=== PATIENT | male | born 1935 | race Caucasian/White ===

== ENCOUNTER 2024-03-15 09:39 | Inpatient (IN) | payer MEDICARE, BC, OTHER ==
[2024-03-15] VITALS (27 sets, daily range): BP systolic 116–159; BP diastolic 51–86
[~2024-03-15] VITALS: Ht 188 cm; Wt 88.6 kg
[2024-03-15 10:29] LABS: EOS% 0.3 % (0-8); HEMATOCRIT 33.9 % (39.0-50.0); HEMOGLOBIN 12.2 g/dl (14.0-18.0); IMMATURE GRANULOCYTES 0.3 % (0.0-5.0); LYMPH% 11.2 % (15-41); MEAN CELL VOLUME 92.4 fL CALC (80.0-100.0); MEAN CORPUSCULAR HGB 33.2 pG CALC (26.0-32.0); MONO% 8.3 % (2-13); NEUT# 3.07 thou/uL (1.82-7.42); NEUT% 79.9 % (42-76); RED BLOOD COUNT 3.67 mill/uL (4.70-6.10); RED CELL DISTRI WIDTH 13.2 % (11.5-15.5)
[2024-03-15] MEDS ORDERED: cefTRIAXone SODIUM 2 GM in SODIUM CHLORIDE 0.9% 100 ML IV ONE (10:30)
[2024-03-15] MEDS ORDERED: AZITHROMYCIN 250 MG/TAB PO ONE (10:30)
[2024-03-15] MEDS ORDERED: IPRATROPIUM-Albuterol 0.5MG-2.5MG/3 ML NEB ONE ×2 (10:30)
[2024-03-15] MEDS ORDERED: methylPREDNISolone SODIUM SUCC 125 MG/2 ML SDV IV ONE (10:30)
[2024-03-15 10:48] LABS: ALBUMIN 3.7 g/dL (3.2-5.0); CREATININE 0.8 mg/dL (0.7-1.3); POTASSIUM 3.4 mmol/l (3.5-5.1); TOTAL PROTEIN 6.1 g/dL (6.3-8.2)
[2024-03-15 10:49] LABS: BILIRUBIN, TOTAL 0.8 mg/dL (0.2-1.3)
[2024-03-15] MEDS ORDERED: OSELTAMIVIR PHOSPHATE 75 MG/TAB CAP PO ONE (11:55)
[2024-03-15] MEDS ORDERED: ACETAMINOPHEN 325 MG/TAB PO PRN (12:05)
[2024-03-15] MEDS ORDERED: MAGNESIUM HYDROXIDE 30 ML UDC PO PRN (12:05)
[2024-03-15] MEDS ORDERED: SODIUM CHLORIDE 0.9% 1,000 ML IV PRN (12:05)
[2024-03-15] MEDS ORDERED: LOSARTAN/HCT1 TA2 PO (12:19)
[2024-03-15] MEDS ORDERED: OMEPRAZOLE DR40 MG PO (12:20)
[2024-03-15] MEDS ORDERED: ATORVASTATIN CA10 MG PO (12:21)
[2024-03-15] MEDS ORDERED: VERAPAMIL HCL120 M2 PO (12:21)
[2024-03-15] MEDS ORDERED: PROVENTIL0.083 % IN (12:22)
[2024-03-15] MEDS ORDERED: TRAZODONE100 MG PO (12:23)
[2024-03-15] MEDS ORDERED: TRELEGY ELLIPTA1 AE1 PO (12:26)
[2024-03-15] MEDS ORDERED: VITAMIN D-32000 UNI1 PO (12:27)
[2024-03-15] MEDS ORDERED: VITAMIN C + PO (12:27)
[2024-03-15] MEDS ORDERED: MULTI VIT PO (12:28)
[2024-03-15] MEDS ORDERED: DOXYCYCLINE HYCLATE 100 MG in SODIUM CHLORIDE 0.9% 100 ML IV SCH (13:00)
--- NOTE | 2024-03-15 14:03 | NUR ---
PATIENT TAKEN TO ICU VIA WHEELCHAIR AND OXYGEN.
--- NOTE | 2024-03-15 14:32 | NUR ---
PT ARRIVED TO ICU BY WHEELCHAIR WITH NURSE, OLIVIA. PT ADMITTED WITH PNA AND FLU. PT IS A/O. AMBULATORY, USES AGUIAR OCCASIONALLY AT HOME. LUNG SOUNDS DIMINISHED THROUGHOUT, COARSE UPPER, AND EXP WHEEZE IN RIGHT LOWER LOBE. PT IS ON 2LNC, DOES NOT WEAR HOME O2. PT DOES REPORT SOB WITH ACTIVITY, EVEN FROM STANDING FROM WHEELCHAIR TO GET TO THE BED. OCCASIONAL COUGH NOTED; NOT PRODUCING SPUTUM AT THIS TIME. HEART SOUNDS S1S2; PT IS NSR ON MONITOR. BS ACTIVE. PT REPORTS LAST BM YESTERDAY. PULSES STRONG UPPER, WEAK LOWER EXTREMETIES. SKIN W/D/I. AFEBRILE. PT DENIES ANY PAIN. GIVEN CALL LIGHT AND EXPLAINED FALL PRECAUTIONS. PT GIVEN MICROWAVEABLE DINNER. ALL NEEDS MET AT THIS TIME. VSS.
[2024-03-15] MEDS ORDERED: IPRATROPIUM-Albuterol 0.5MG-2.5MG/3 ML NEB SCH (15:00)
[2024-03-15] MEDS ORDERED: VERAPAMIL HCL240 MG PO (16:10)
--- NOTE | 2024-03-15 16:41 | NUR ---
VISITOR AT BEDSIDE. NO CHANGES TO PT STATUS.
--- NOTE | 2024-03-15 17:40 | NUR ---
PT PULLED OUT IV AND DISCONNECTED BIPAP MACHINE WHILE GETTING TO EDGE OF BED. NEW IV STARTED AND BIPAP RECONNECTED. PT REMINDED TO WAIT FOR ASSISTANCE. LINENS CHANGED AND PT REPOSITIONED IN BED. BED ALARM ON FOR SAFETY. CALL LIGHT IN REACH. VSS.
--- NOTE | 2024-03-15 19:15 | NUR ---
PERFORMED BEDSIDE REPORT AND PATIENT WAS PLEASANT AND HAD NO PAINS.
--- NOTE | 2024-03-15 20:00 | NUR ---
PERFORMED PATIENT'S ASSESSMENT AND EDUCATED THE PATIENT ABOUT URINAL USE AND CALLING FOR HELP. HEARD PATIENT WITH A PRODUCTIVE COUGH AND ASKED IF HE WANTED COUGH MEDICATION OR ANYTHING FOR PAIN. PATIENT REFUSED.
[2024-03-15] MEDS ORDERED: OSELTAMIVIR PHOSPHATE 75 MG/TAB CAP PO SCH (21:00)
[2024-03-15] MEDS ORDERED: methylPREDNISolone Sod Succ 40 MG/ML SDV IV SCH (21:00)
[2024-03-15] MEDS ORDERED: traZODone HCL 50 MG/TAB PO SCH (21:00)
[2024-03-15] MEDS ORDERED: ENOXAPARIN SODIUM 40 MG/0.4 ML SYR SC SCH (21:00)
[2024-03-15] MEDS ORDERED: ATORVASTATIN CALCIUM 10 MG/TAB PO SCH (21:00)
--- NOTE | 2024-03-16 | NUR ---
PATIENT WAS RESTING AFTER GIVEN ALL MEDICATION. PATIENT SEEMS COMFORTABLE.
[2024-03-16 03:00] VITALS: BP 121/60
[2024-03-16 05:24] LABS: ALBUMIN 3.2 g/dL (3.2-5.0); BILIRUBIN, TOTAL 0.5 mg/dL (0.2-1.3); CREATININE 0.7 mg/dL (0.7-1.3); HEMATOCRIT 31.7 % (39.0-50.0); HEMOGLOBIN 11.6 g/dl (14.0-18.0); IMMATURE GRANULOCYTES 0.4 % (0.0-5.0); LYMPH% 9.3 % (15-41); MAGNESIUM 1.8 mg/dL (1.6-2.3); MEAN CELL VOLUME 92.4 fL CALC (80.0-100.0); MEAN CORPUSCULAR HGB 33.8 pG CALC (26.0-32.0); MEAN CORPUSCULAR HGB CONC 36.6 g/dL CAL (32.0-36.0); MONO% 3.9 % (2-13); NEUT# 2.22 thou/uL (1.82-7.42); NEUT% 86.4 % (42-76); POTASSIUM 3.1 mmol/l (3.5-5.1); RED BLOOD COUNT 3.43 mill/uL (4.70-6.10); RED CELL DISTRI WIDTH 12.8 % (11.5-15.5); TOTAL PROTEIN 5.7 g/dL (6.3-8.2)
[2024-03-16 06:00] VITALS: BP 144/65
--- NOTE | 2024-03-16 06:00 | NUR ---
ROUNDED WITH PATIENT TO ASK IF THERE WAS ANY PAIN OR COUGH NEEDED. PT REFUSED.
[2024-03-16] MEDS ORDERED: POTASSIUM CHLORIDE 20 MEQ/TAB PO SCH (08:00)
--- NOTE | 2024-03-16 08:00 | NUR ---
REPORT RECEIVED FROM NIGHT NURSE. NO CHANGES TO PT OVERNIGHT. PT REMAINS ON 2LNC. LUNGS DIMINISHED, OCCASIONAL NON-PRODUCTIVE COUGH NOTED. HEART SOUNDS S1S2; PT IS NSR ON MONITOR. BS ACTIVE. PULSES STRONG ALL EXTREMETIES. SKIN W/D/I. AFEBRILE. CALL LIGHT IN REACH. PT GIVEN BREAKFAST TRAY. VSS.
[2024-03-16 09:00] VITALS: BP 139/64
[2024-03-16] MEDS ORDERED: LOSARTAN Potassium 50 MG/TAB PO SCH (09:00)
[2024-03-16] MEDS ORDERED: PANTOPRAZOLE SODIUM Sesquihydr 40 MG/TAB PO SCH ×2 (09:00)
[2024-03-16] MEDS ORDERED: VERAPAMIL HCL ER 120 MG/CAP PO SCH (09:00)
--- NOTE | 2024-03-16 11:03 | NUR ---
REPORT GIVEN TO TI ARTEAGA. PT MOVING TO MED-SURG UNIT VIA WHEELCHAIR.
--- NOTE | 2024-03-16 11:15 | NUR ---
PT ARRIVED TO THE UNIT VIA STAFF/WHEELCHAIR TRANSPORT. ASSISTED PT TO COMMODE VIA WHEELCHAIR AND 1X ASSIST FOR SAFETY.
[2024-03-16 11:24] VITALS: BP 177/82
--- NOTE | 2024-03-16 11:30 | NUR ---
ASSISTED PT TO THE BED VIA WHEELCHAIR, (PT USES CANE AT HOME) RESPIRATIONS ARE LABORED WITH ACTIVITY, LUNGS ARE DIM AT BILATERAL LOWER LOBES, CLEAR AT BILATERAL UPPER LOBES, BOWEL SOUNDS ARE ACTIVE, PEDAL PULSES ARE PALPABLE TO TOUCH, PT DENIES PAIN AT THIS TIME.
[2024-03-16 15:32] VITALS: BP 118/52
--- NOTE | 2024-03-16 16:18 | NUR ---
PT SITTING UP IN BED, RESPIRATIONS ARE EVEN AND UNLABORED, PT IN NO ACUTE DISTRESS AT THIS TIME.
[2024-03-16 18:43] VITALS: BP 125/56
--- NOTE | 2024-03-16 19:44 | NUR ---
RECEIVED REPORT FROM NURSE ARTEAGA, PATIENT RESTING IN BED, ALERT ORIENTED, O2 @ 1LPM VIA NC, ON TELEMETRY, WHITE PRODUCTIVE COUGH, VOIDED 350 CC OF YELLOW URINE, REMAINS ON ISOLATION, LUNG SOUNDS DIMINISHED BASES, CALL LIGHT IN REACHED.
--- NOTE | 2024-03-17 | NUR ---
PATIENT RSETING IN BED, REMAINS ON O2 @ 1LPM VIA NC,NOT IS DISTRESS, CALL LIGHT WITHIN REACHED.
[2024-03-17 00:34] VITALS: BP 148/68
[2024-03-17 04:08] VITALS: BP 140/59
--- NOTE | 2024-03-17 05:23 | NUR ---
PATIENT BROUGHT DOWN TO RADIOLAGY FOR REPEAT CXR, PATIENT NOW BACK IN ROOM REMAINS ON O2 @ 1LPM VIA NC, CALL LIGHT WITHIN REACHED.
[2024-03-17 06:03] LABS: BILIRUBIN, TOTAL 0.4 mg/dL (0.2-1.3); CREATININE 0.7 mg/dL (0.7-1.3); MAGNESIUM 1.9 mg/dL (1.6-2.3); TOTAL PROTEIN 5.3 g/dL (6.3-8.2)
[2024-03-17 06:07] LABS: POTASSIUM 3.8 mmol/l (3.5-5.1)
[2024-03-17 06:11] LABS: BASO% 0.1 % (0-3); HEMATOCRIT 30.7 % (39.0-50.0); IMMATURE GRANULOCYTES 0.1 % (0.0-5.0); LYMPH% 4.4 % (15-41); MEAN CORPUSCULAR HGB 34.1 pG CALC (26.0-32.0); MEAN CORPUSCULAR HGB CONC 35.8 g/dL CAL (32.0-36.0); NEUT# 7.11 thou/uL (1.82-7.42); NEUT% 92.4 % (42-76); RED BLOOD COUNT 3.23 mill/uL (4.70-6.10); RED CELL DISTRI WIDTH 13.2 % (11.5-15.5)
--- NOTE | 2024-03-17 07:35 | NUR ---
SHIFT CHANGE REPORT, PT AWAKE ALERT AND ORIENTED RESTING IN BED, COUGHING AT THIS TIME - WET BUT NON-PRODUCTIVE, O2 @ 2L VIA NC IN PLACE, TELE MONITOR IN PLACE, CALL GRESHAM IN REACH AND BED LOCKED IN LOWEST POSITION.
[2024-03-17 08:03] VITALS: BP 167/86
--- NOTE | 2024-03-17 12:00 | NUR ---
RELAXING IN BED, CONDITION STABLE
[2024-03-17 12:05] VITALS: BP 153/77
--- NOTE | 2024-03-17 16:00 | NUR ---
NO NEW COMPLAINS.
[2024-03-17 16:55] VITALS: BP 136/55
[2024-03-17 20:18] VITALS: BP 142/59
--- NOTE | 2024-03-18 | NUR ---
PT LAYING IN BED SEMI FOLWERS WITH NASAL CANNULA IN PLACE. PT IS SLEEPING AT THIS TIME. NO S/S OF DISTRESS. CALL LIGHT WITHIN REACH AND SAFETY PRECAUTIONS IN PLACE.
[2024-03-18 00:04] VITALS: BP 152/66
[2024-03-18 04:14] VITALS: BP 160/76
--- NOTE | 2024-03-18 04:27 | NUR ---
PT LAYING IN BED SEMI FOWLERS WITH NASAL CANNULA IN PLACE. VSS. PT DENIES ANY N/V/P AT THIS TIME. NO S/S OF DISTRESS. CALL LIGHT WITHIN REACH AND SAFETY PRECAUTIONS IN PLACE.
[2024-03-18 04:56] LABS: HEMATOCRIT 30.4 % (39.0-50.0); HEMOGLOBIN 10.6 g/dl (14.0-18.0); IMMATURE GRANULOCYTES 0.8 % (0.0-5.0); LYMPH% 3.7 % (15-41); MEAN CELL VOLUME 95.9 fL CALC (80.0-100.0); MEAN CORPUSCULAR HGB 33.4 pG CALC (26.0-32.0); MEAN CORPUSCULAR HGB CONC 34.9 g/dL CAL (32.0-36.0); NEUT# 7.03 thou/uL (1.82-7.42); NEUT% 92.5 % (42-76); RED BLOOD COUNT 3.17 mill/uL (4.70-6.10); RED CELL DISTRI WIDTH 13.3 % (11.5-15.5)
[2024-03-18 05:08] LABS: ALBUMIN 2.9 g/dL (3.2-5.0); BILIRUBIN, TOTAL 0.3 mg/dL (0.2-1.3); CREATININE 0.7 mg/dL (0.7-1.3); MAGNESIUM 1.9 mg/dL (1.6-2.3); POTASSIUM 3.6 mmol/l (3.5-5.1); TOTAL PROTEIN 5.2 g/dL (6.3-8.2)
--- NOTE | 2024-03-18 07:47 | NUR ---
PT IS AOX4, RESPIRATIONS ARE EVEN AND UNLABORED AT REST WITH A DRY COUGH , PT DOES REPORT FEELING SOB WITH ACTIVITY, LUNGS SOUND COURSE AT BILATERAL BASES, WHEEZING LEFT UPPER LOBE, BOWEL SOUNDS ARE ACTIVE, PEDAL PULSES ARE PALPABLE TO TOUCH, PT DENIES PAIN AT THIS.
[2024-03-18 09:07] VITALS: BP 177/92
[2024-03-18] MEDS ORDERED: GUAIFENESIN 200 MG/10 ML UDC PO PRN (09:10)
[2024-03-18 11:23] VITALS: BP 160/76
[2024-03-18] MEDS ORDERED: TAM75CAP PO (13:06)
[2024-03-18] MEDS ORDERED: DOXYCYCLINE100 MG PO (13:07)
--- NOTE | 2024-03-18 15:09 | NUR ---
REVIEWED DISCHARGE INSTRUCTIONS WITH PT, ANSWERED ANY QUESTIONS OR CONCERNS, REMOVED IV, REMOVED TELE BOX AND PLACED IT IN RETURN BIN AT NURSES STATION.
--- NOTE | 2024-03-18 15:15 | NUR ---
PT LEFT THE UNIT VIA STAFF WHEELCHAIR TRANSPORT WITH BELONGINGS IN HAND.
--- NOTE | 2024-03-19 13:22 | NUR ---
Discharge follow up call completed 03/19/24. Patient states he is doing well and breathing better today. Patient is taking prescribed medication as directed and spivey made a follow up appointment with his PCP for next 03/23/24. No needs or concerns verbalized at this time.
== END 2024-03-18 15:15 | disposition home health service (06) | DRG 194 ==
LOC: ED 09:39 → ED-I 11:50 → ED 12:09 → ICU 12:10 → MS2 03-16 11:07
PROVIDERS: Family Medicine; Nurse Practitioner Family; ADMIT Internal Medicine; ATTEND Internal Medicine
DX: J10.00 Influenza due to other identified influenza virus with unspecified type of pneumonia (principal); D61.818 Other pancytopenia; J44.0 Chronic obstructive pulmonary disease with (acute) lower respiratory infection; J44.1 Chronic obstructive pulmonary disease with (acute) exacerbation; R09.02 Hypoxemia; I10 Essential (primary) hypertension; E78.5 Hyperlipidemia, unspecified
CPT/HCPCS: J0696; J1650